=== PATIENT | male | born 1980 | race Caucasian/White ===

== ENCOUNTER 2017-04-25 20:04 | Emergency (ER) | payer BC, OTHER ==
[~2017-04-25] VITALS: Ht 182.9 cm; Wt 104.7 kg
[2017-04-25 20:08] VITALS: TEMP 36.4; Ht 182.9 cm; Wt 104.7 kg
[2017-04-25] MEDS ORDERED: KETOROLAC TROMETHAMINE 30 MG/ML VIAL IV STA (20:44)
[2017-04-25] MEDS ORDERED: SODIUM CHLORIDE 0.9% 1000ML 1,000 ML IV STA (20:44)
[2017-04-25] MEDS ORDERED: ONDANSETRON INJ 2 MG/ML 2 ML VIAL IV STA (20:44)
[2017-04-25] MEDS ORDERED: SERT-234 PO (21:03)
[2017-04-25] MEDS ORDERED: BISM262T3 PO (21:03)
[2017-04-25 21:19] LABS: BASO % 0.1 %; BASO ABS # 0.01 K/uL (0-0.2); EOS % 0.2 %; EOS ABS # 0.02 K/uL (0-0.5); HEMATOCRIT 45.1 % (42-52); HEMOGLOBIN 16.1 g/dL (14.0-18.0); IG# 0.02 K/uL (0.00-0.02); LYMPH % 5.3 %; LYMPH ABS # 0.47 K/uL (1.2-3.4); MEAN CELL VOLUME 82.4 fL (80-100); MEAN CORPUSCULAR HEMOGLOBIN 29.4 pg (25-34); MEAN CORPUSCULAR HGB CONC 35.7 g/dl (32-36); MEAN PLATELET VOLUME 9.4 fL (7.4-10.4); MONO ABS # 0.27 K/uL (0.11-0.59); NEUT % 91.2 %; NEUT ABS # 8.13 K/uL (1.4-6.5); PLATELET COUNT 258 K/uL (130-400); RED CELL DISTRIBUTION WIDTH CV 12.6 % (11.5-14.5); RED CELL DISTRIBUTION WIDTH SD 37.7 fL (36.4-46.3); WHITE BLOOD COUNT 8.92 K/uL (4.8-10.8)
[2017-04-25 21:36] LABS: ALBUMIN 3.9 gm/dl (3.4-5.0); CALCIUM 9.2 mg/dl (8.5-10.1); CREATININE 1.27 mg/dl (0.60-1.40); POTASSIUM 3.3 mmol/L (3.5-5.1)
[2017-04-25 21:39] LABS: TOTAL PROTEIN 7.4 gm/dl (6.4-8.2)
[2017-04-25 21:54] LABS: INFLUENZA B ANTIGEN Neg for Influ B (NEG)
--- NOTE | 2017-04-25 22:08 | EMERGENCY ROOM VISIT NOTE ---
History Report prepared by [place]: Melisa Byrnes Under the Supervision of: Dr. Tali Pelletier M.D. First contact with patient: 20:42 Chief Complaint: VOMITING Stated Complaint: VOMITING, ACHES, PAINS, DIARRHEA Nursing Triage Summary: pt reports started with NVD and body aches this AM History of Present Illness The patient is a 36 year old male who presents to the Emergency Room with complaints of persistent vomiting that began at midnight. He notes he has diarrhea and fevers.The patient states that he becomes more nauseous while he is sitting up. He notes that hyperventilating prevents him from vomiting. The patients is currently experiencing the same symptoms. Source of History: patient Onset: midnight Position: other (global) Quality: other (vomiting) Timing: other (persistent) Associated Symptoms: + fevers, + diarrhea Review of Systems See HPI for pertinent positives & negatives. A total of 10 systems reviewed and were otherwise negative. Past Medical & Surgical Mood disorder Family History Patient reports no known family medical history. Social History Smoking Status: Never Smoker Smokeless Tobacco Use: No Alcohol Use: none Drug Use: none Marital Status: Housing Status: lives with family Occupation Status: employed Current/Historical Medications Scheduled Ondasetron Odt (Zofran Odt), 4 MG SL Q6H Sertraline (Zoloft), 100 MG PO DAILY Scheduled PRN Bismuth Subsalicylate (Pepto Bismol Chew Tab), 1 TAB PO DIRECTED PRN for UPSET STOMACH Allergies Coded Allergies: No Known Allergies (Unverified , 04/25/17) Physical Exam Vital Signs Date Time Temp Pulse Resp B/P (MAP) Pulse Ox O2 Delivery O2 Flow Rate FiO2 04/25/17 23:04 91 15 129/75 98 04/25/17 21:53 86 16 130/75 94 Room Air 04/25/17 21:41 84 04/25/17 20:08 36.4 112 20 105/65 99 Room Air Physical Exam Vital signs reviewed. General: Well-appearing male, in some discomfort HEENT: No scleral icterus, PERRLA, neck supple. Atraumatic. Cardiovascular: Tachycardic but regular. No extra sounds. Pulmonary: Clear to auscultation bilaterally, normal work of breathing. Abdomen: Soft, nontender, nondistended, positive bowel sounds. Musculoskeletal: Atraumatic, no peripheral edema. Neurologic: Patient awake alert and oriented x 3, full strength in all 4 extremities. Cranial nerves 2 through 12 grossly intact. Skin: Warm, dry, no rash Medical Decision & Procedures Laboratory Results 04/25/17 21:00 Red Blood Count 5.47, Mean Corpuscular Volume 82.4, Mean Corpuscular Hemoglobin 29.4, Mean Corpuscular Hemoglobin Concent 35.7, Mean Platelet Volume 9.4, Neutrophils (%) (Auto) 91.2, Lymphocytes (%) (Auto) 5.3, Monocytes (%) (Auto) 3.0, Eosinophils (%) (Auto) 0.2, Basophils (%) (Auto) 0.1, Neutrophils # (Auto) 8.13, Lymphocytes # (Auto) 0.47, Monocytes # (Auto) 0.27, Eosinophils # (Auto) 0.02, Basophils # (Auto) 0.01 04/25/17 21:00 Test 04/25/17 21:00 04/25/17 21:58 White Blood Count 8.92 K/uL (4.8-10.8) Red Blood Count 5.47 M/uL (4.7-6.1) Hemoglobin 16.1 g/dL (14.0-18.0) Hematocrit 45.1 % (42-52) Mean Corpuscular Volume 82.4 fL (80-100) Mean Corpuscular Hemoglobin 29.4 pg (25-34) Mean Corpuscular Hemoglobin Concent 35.7 g/dl (32-36) Platelet Count 258 K/uL (130-400) Mean Platelet Volume 9.4 fL (7.4-10.4) Neutrophils (%) (Auto) 91.2 % Lymphocytes (%) (Auto) 5.3 % Monocytes (%) (Auto) 3.0 % Eosinophils (%) (Auto) 0.2 % Basophils (%) (Auto) 0.1 % Neutrophils # (Auto) 8.13 K/uL (1.4-6.5) Lymphocytes # (Auto) 0.47 K/uL (1.2-3.4) Monocytes # (Auto) 0.27 K/uL (0.11-0.59) Eosinophils # (Auto) 0.02 K/uL (0-0.5) Basophils # (Auto) 0.01 K/uL (0-0.2) RDW Standard Deviation 37.7 fL (36.4-46.3) RDW Coefficient of Variation 12.6 % (11.5-14.5) Immature Granulocyte % (Auto) 0.2 % Immature Granulocyte # (Auto) 0.02 K/uL (0.00-0.02) Anion Gap 14.0 mmol/L (3-11) Est Creatinine Clear Calc Drug Dose 101.6 ml/min Estimated GFR () 84.3 Estimated GFR (Non- 72.7 BUN/Creatinine Ratio 15.3 (10-20) Calcium Level 9.2 mg/dl (8.5-10.1) Magnesium Level 1.5 mg/dl (1.8-2.4) Total Bilirubin 1.0 mg/dl (0.2-1) Direct Bilirubin 0.2 mg/dl (0-0.2) Aspartate Amino Transf (AST/SGOT) 23 U/L (15-37) Alanine Aminotransferase (ALT/SGPT) 37 U/L (12-78) Alkaline Phosphatase 77 U/L (45-117) Total Protein 7.4 gm/dl (6.4-8.2) Albumin 3.9 gm/dl (3.4-5.0) Lipase 126 U/L (73-393) Influenza Type A Antigen Neg for Influ A (NEG) Influenza Type B Antigen Neg for Influ B (NEG) Urine Color DK YELLOW Urine Appearance CLEAR (CLEAR) Urine pH 7.5 (4.5-7.5) Urine Specific [place] 1.033 (1.000-1.030) Urine Protein NEG (NEG) Urine Glucose (UA) NEG (NEG) Urine Ketones 2+ (NEG) Urine Occult Blood NEG (NEG) Urine Nitrite NEG (NEG) Urine Bilirubin NEG (NEG) Urine Urobilinogen NEG (NEG) Urine Leukocyte Esterase TRACE (NEG) Urine WBC (Auto) 1-5 /hpf (0-5) Urine RBC (Auto) 0-4 /hpf (0-4) Urine Hyaline Casts (Auto) 1-5 /lpf (0-5) Urine Epithelial Cells (Auto) 5-10 /lpf (0-5) Urine Bacteria (Auto) NEG (NEG) Laboratory results per my review. Medications Administered Medications (Trade) Dose Ordered Sig/Clay Route Start Time Stop Time Status Last Admin Dose Admin Sodium Chloride 1,000 ml @ 999 mls/hr Q1H1M STAT IV 04/25/17 20:44 04/25/17 21:44 DC 04/25/17 21:04 999 MLS/HR Ondansetron HCl (Zofran Inj) 4 mg NOW STAT IV 04/25/17 20:44 04/25/17 20:45 DC 04/25/17 21:05 4 MG Ketorolac Tromethamine (Toradol Inj) 30 mg NOW STAT IV 04/25/17 20:44 04/25/17 20:45 DC 04/25/17 21:05 30 MG Ondansetron HCl (ZOFRAN ODT 4MG Home Pack) 1 homepack UD ONCE PO 04/25/17 23:00 04/25/17 23:01 DC 04/25/17 22:56 1 HOMEPACK ED Course 2042: Past medical records reviewed. The patient was evaluated in room C8. A complete history and physical examination was performed. 2043: Ordered Toradol Inj 30mg IV, Zofran Inj 4mg IV, and Sodium Chloride 1000 ml @ 999 mls/hr IV. 2146: I reevaluated the patient, who was resting comfortably. 2299: Ordered Ondansetron HCL 1 homepack, PO. 1: Upon reevaluation, the patient appeared to have improvement of his symptoms. I discussed findings with him. The patient verbalized agreement of the treatment plan. He was discharged home. Medical Decision Differential diagnosis: Etiologies such as gastroenteritis, food borne illness, infections, appendicitis , diverticulitis, inflammatory bowel disease, obstruction, GI bleed, biliary pathology, as well as others were entertained. This patient was evaluated and appeared to be in no significant distress. IV access was obtained and laboratory work was drawn. Patient was placed on the groundwater monitoring technician and found to be in a sinus tachycardia. He was hydrated with normal saline solution, given IV Toradol and Zofran. Laboratory work reveals normal white blood cell count. Total bilirubin is mildly elevated, likely due to vomiting. The patient had significant improvement in his symptoms after the above interventions. He was discharged with a Zofran home pack and a short prescription. He was asked to drink plenty of clear liquids and advance diet slowly as tolerated. He will follow-up with his physician and return to the ER for worsening of symptoms or any medical concerns. Medication Reconcilliation Current Medication List: was personally reviewed by me Blood Pressure Screening Patient's blood pressure: Normal blood pressure Impression Primary Impression: Vomiting Additional Impression: Diarrhea Scribe Attestation The scribe's documentation has been prepared under my direction and personally reviewed by me in its entirety. I confirm that the note above accurately reflects all work, treatment, procedures, and medical decision making performed by me. Departure Information Dispostion Home / Self-Care Prescriptions Ondasetron Odt (ZOFRAN ODT) 4 Mg Tab 4 MG SL Q6H for Nausea, #10 TAB Prov: Tali Pelletier M.D. 04/25/17 Referrals No Doctor, Assigned (PCP) Forms HOME CARE DOCUMENTATION FORM, IMPORTANT VISIT INFORMATION Patient Instructions My [facility] Additional Instructions Diagnosis: Vomiting, diarrhea Tylenol 650 mg every 6 hours as needed for pain or fever. Zofran 4 mg ODT every 6 hours as needed for nausea. Please drink plenty of clear fluids. Advance her diet slowly as tolerated. Maintain strict hand washing and cleaning the bathroom as frequently to avoid further illness in the home. Follow-up with your physician this week for reevaluation. Return to the ER for worsening of symptoms or any medical concerns. Problem Qualifiers
[2017-04-25] MEDS ORDERED: ONDA4TAB10 SL (22:45)
[2017-04-25] MEDS ORDERED: ONDANSETRON HOME PACK 4MG OD TAB PO ONE (23:00)
[2017-04-25 23:04] VITALS: BP 129/75; PULSE 91; O2SAT 98
== END 2017-04-25 23:05 | disposition home or self-care (01) ==
LOC: C.EDB 20:05 → C.EDC 23:05
DX: R11.2 Nausea with vomiting, unspecified (principal); R19.7 Diarrhea, unspecified; R50.9 Fever, unspecified